=== PATIENT | female | born 1980 | race Caucasian/White ===

== ENCOUNTER 2017-08-04 12:14 | Inpatient (IN) | payer MEDICAID ==
[~2017-08-04] VITALS: Ht 157.5 cm; Wt 75.7 kg
[2017-08-04] MEDS ORDERED: ALD250 PO (13:17)
[2017-08-04 13:29] LABS: BASOPHILS # (AUTO) 0.1 K/uL (0.00-0.22); BASOPHILS % (AUTO) 1.4 % (0.0-2.0); EOSINOPHILS # (AUTO) 0.1 K/uL (0-0.4); HEMATOCRIT 35.1 % (36-48); HEMOGLOBIN 11.4 g/dL (12.0-16.0); LYMPHOCYTES # (AUTO) 2.1 K/uL (2.5-16.5); LYMPHOCYTES % (AUTO) 25.9 % (20.5-51.1); MEAN CORPUSCULAR HEMOGLOBIN 27 pg (27-31); MEAN CORPUSCULAR HGB CONC 33 g/dL (33-37); MEAN CORPUSCULAR VOLUME 82 fL (80-94); MONOCYTES # (AUTO) 0.4 K/uL (0.8-1.0); MONOCYTES % (AUTO) 5.5 % (1.7-9.3); NEUTROPHILS # (AUTO) 5.3 K/uL (1.8-7.7); NEUTROPHILS % (AUTO) 66.2 % (42.2-75.2); PLATELET COUNT (AUTO) 189 K/uL (140-450); RED CELL DISTRIBUTION WIDTH 14.1 % (11.6-13.7)
[2017-08-04 13:57] LABS: PROTHROMBIN TIME 9.1 secs (10.8-13.4)
[2017-08-04 14:14] LABS: ALBUMIN 2.4 g/dL (3.4-5.0); CARBON DIOXIDE 21.8 mmol/L (21-32); CREATININE 0.6 mg/dL (0.6-1.3); MAGNESIUM 1.8 mg/dL (1.8-2.4); POTASSIUM 3.8 mmol/L (3.5-5.1); TOTAL BILIRUBIN 0.8 mg/dL (0.0-1.0)
[2017-08-04] MEDS ORDERED: METHYLDOPA 250 MG TAB PO SCH (17:00)
[2017-08-04] MEDS ORDERED: METHYLDOPA 250 MG TAB ONE ×2 (17:49→22:11)
[2017-08-04] MEDS ORDERED: LABETALOL 100 MG TAB PO SCH (21:00)
[2017-08-05] MEDS ORDERED: LABETALOL 100 MG TAB ONE ×4 (01:46→13:51)
[2017-08-05] MEDS: LABETALOL 100 MG TAB PO SCH ×2 (01:58→13:44)
[2017-08-05 06:50] LABS: ALBUMIN 2.2 g/dL (3.4-5.0); BILIRUBIN,DIRECT 0.1 mg/dL (0.0-0.3); TOTAL BILIRUBIN 0.8 mg/dL (0.0-1.0)
--- NOTE | 2017-08-05 09:51 | NUR ---
PATIENT HAS BEEN SCREENED AND CATEGORIZED LOW NUTRITION RISK. PATIENT WILL BE SEEN WITHIN 7 DAYS OF ADMISSION. 08/11/[address]
[2017-08-05] MEDS ORDERED: BETAMETH ACET/BETAMETH NA PH 30 MG/5 ML VIAL IM ONE (16:35)
[2017-08-05] MEDS ORDERED: BETAMETH ACET/BETAMETH NA PH 30 MG/5 ML VIAL IM SCH (17:00)
[2017-08-05] MEDS: LACTATED RINGERS 1,000 ML IV SCH (23:28)
[2017-08-06] MEDS ORDERED: LABETALOL 200 MG TAB ONE ×3 (01:48→23:29)
[2017-08-06] MEDS: LABETALOL 200 MG TAB PO SCH ×2 (01:51→14:18)
[2017-08-06] MEDS ORDERED: glyBURIDE 2.5 MG TAB PO SCH (08:00)
[2017-08-06] MEDS: LACTATED RINGERS 1,000 ML IV SCH ×2 (08:15→18:37)
[2017-08-06] MEDS: glyBURIDE 2.5 MG TAB PO SCH (12:37)
[2017-08-06] MEDS ORDERED: BETAMETH ACET/BETAMETH NA PH 30 MG/5 ML VIAL IM ONE (17:04)
[2017-08-06] MEDS ORDERED: LABETALOL 100 MG TAB ONE (23:30)
[2017-08-07 06:56] LABS: BASOPHILS % (AUTO) 0.4 % (0.0-2.0); EOSINOPHILS % (AUTO) 0.3 % (0.0-4.0); HEMATOCRIT 33.5 % (36-48); HEMOGLOBIN 10.7 g/dL (12.0-16.0); LYMPHOCYTES # (AUTO) 1.1 K/uL (2.5-16.5); LYMPHOCYTES % (AUTO) 11.1 % (20.5-51.1); MEAN CORPUSCULAR HEMOGLOBIN 27 pg (27-31); MEAN CORPUSCULAR HGB CONC 32 g/dL (33-37); MEAN CORPUSCULAR VOLUME 83 fL (80-94); MONOCYTES # (AUTO) 0.3 K/uL (0.8-1.0); MONOCYTES % (AUTO) 2.8 % (1.7-9.3); NEUTROPHILS # (AUTO) 8.6 K/uL (1.8-7.7); NEUTROPHILS % (AUTO) 85.4 % (42.2-75.2); PLATELET COUNT (AUTO) 188 K/uL (140-450); RED BLOOD CELL COUNT(AUTO) 4.02 MIL/uL (4.20-5.40); RED CELL DISTRIBUTION WIDTH 14.3 % (11.6-13.7)
[2017-08-07 07:19] LABS: PROTHROMBIN TIME 9.1 secs (10.8-13.4)
[2017-08-07 07:21] LABS: ALBUMIN 2.5 g/dL (3.4-5.0); ANION GAP 13.8 (8-16); CARBON DIOXIDE 21.4 mmol/L (21-32); CREATININE 0.6 mg/dL (0.6-1.3); D-DIMER 1330 ng/ml (0-400); POTASSIUM 4.2 mmol/L (3.5-5.1); TOTAL BILIRUBIN 0.6 mg/dL (0.0-1.0)
[2017-08-07 07:33] LABS: FIBRINOGEN 411 mg/dL (200-400)
[2017-08-07] MEDS ORDERED: NIFEdipine 10 MG CAPLF ONE (07:45)
[2017-08-07] MEDS ORDERED: LABETALOL 200 MG TAB PO SCH (09:00)
[2017-08-07] MEDS: glyBURIDE 2.5 MG TAB PO SCH (13:00)
[2017-08-07] MEDS ORDERED: LABETALOL PO SCH ×2 (14:00)
[2017-08-07] MEDS ORDERED: LABETALOL 100 MG TAB ONE (14:05)
[2017-08-07] MEDS ORDERED: NALBUPHINE 10 MG/ML AMP IVP PRN (19:55)
[2017-08-07] MEDS ORDERED: MISOPROSTOL 25 MCG TAB VG SCH (19:55)
[2017-08-07] MEDS ORDERED: MORPHINE SULFATE 2 MG/ML SYR IVP PRN (19:55)
[2017-08-07] MEDS ORDERED: NIFEdipine 10 MG CAPLF PO PRN (20:10)
[2017-08-07] MEDS: LABETALOL 200 MG TAB PO SCH (21:41)
[2017-08-07] MEDS ORDERED: LABETALOL 200 MG TAB ONE (21:44)
[2017-08-07] MEDS ORDERED: ROPIVACAINE 0.2%/NS PREMIX 250 ML EPI ONE (22:39)
[2017-08-07] MEDS: LABETALOL 100 MG/20 ML VIAL ONE (23:13)
[2017-08-07] MEDS: OXYTOCIN 20 UNITS in LACTATED RINGERS 1,000 ML IV SCH (23:27)
[2017-08-07] MEDS: LACTATED RINGERS 1,000 ML IV SCH (23:31)
[2017-08-08] VITALS (18 sets, daily range): BP systolic 122–169; BP diastolic 65–100
[2017-08-08] MEDS ORDERED: NALBUPHINE HYDROCHLORIDE 10 MG/ML VIAL ONE (01:32)
[2017-08-08] MEDS ORDERED: NIFEdipine 10 MG CAPLF ONE ×3 (03:04→09:05)
[2017-08-08] MEDS ORDERED: OXYTOCIN 20 UNITS/LR PREMIX 1,000 ML IV ONE ×2 (06:17→13:42)
[2017-08-08] MEDS: OXYTOCIN 20 UNITS in LACTATED RINGERS 1,000 ML IV SCH ×2 (06:19→17:46)
[2017-08-08] MEDS: LACTATED RINGERS 1,000 ML IV SCH ×2 (06:23→17:38)
[2017-08-08] MEDS ORDERED: NIFEdipine 10 MG CAPLF PO PRN ×2 (08:30→08:40)
[2017-08-08] MEDS: LABETALOL 200 MG TAB PO SCH (09:00)
[2017-08-08] MEDS ORDERED: SEVOFLURANE 250 ML BTL INH ONE (11:50)
[2017-08-08] MEDS ORDERED: MORPHINE PRES FREE 10 MG/10 ML AMP IV ONE (11:51)
[2017-08-08] MEDS ORDERED: ROCURONIUM 50 MG/5 ML VIAL IV ONE (11:56)
[2017-08-08] MEDS ORDERED: PROPOFOL 200 MG/20 ML VIAL IV ONE (11:56)
[2017-08-08] MEDS ORDERED: SUCCINYLCHOLINE CHLORIDE 200 MG/10 ML VIAL IV ONE (11:56)
[2017-08-08] MEDS ORDERED: ONDANSETRON 4 MG/2 ML VIAL IVP ONE (11:58)
[2017-08-08] MEDS ORDERED: OXYTOCIN 20 UNITS in LACTATED RINGERS 1,000 ML IV SCH (12:06)
[2017-08-08] MEDS ORDERED: diphenhydrAMINE 50 MG/ML VIAL IVP PRN (12:10)
[2017-08-08] MEDS ORDERED: NALOXONE 0.4 MG/ML VIAL IVP PRN ×2 (12:10)
[2017-08-08] MEDS ORDERED: ONDANSETRON 4 MG/2 ML VIAL IVP PRN (12:10)
[2017-08-08] MEDS ORDERED: KETOROLAC 30 MG/ML VIAL IVP PRN (12:10)
[2017-08-08] MEDS ORDERED: KETAMINE 500 MG/5 ML VIAL ONE (12:44)
[2017-08-08] MEDS ORDERED: MIDAZOLAM 2 MG/2 ML VIAL ONE (12:44)
[2017-08-08] MEDS ORDERED: HYDROmorphone 1 MG/ML AMP IVP PRN (14:30)
--- NOTE | 2017-08-08 15:35 | NUR ---
ADMITTED A 36 YO FEMALE FROM OR SP THEN SMALL BOWEL RESECTION WITH ANASTOMOSIS PER OR NURSE.LEFT HAND 20 GAUGE IV WITH LR PLUS PITOCIN .WILL CHECK THE RATE DR MARES WANTED.PT CO PAIN 10/10 AT SURGICAL ABDOMINAL WOUND .DR MARES MADE AWARE AND WILL ORDER PAIN MEDS NOTIFIED PATIENT WILL GIVE PAIN MEDS SOON ORDERED.SINUS KVNG ON THE MONITOR.PT WITH MOY CAMEROONIAN 16 WITH YELLOW URINE.PT WITH 2 REG BULB DRAINING SANGUINEOUS DRAINAGE.PT WITH FACE MASK AT 6 L SATURATING 100 PERCENT.NGT TO RIGHT NARES CLAMPED.BILATERAL SCD ON.WILL MONITOR.
[2017-08-08] MEDS ORDERED: LABETALOL 100 MG/20 ML VIAL IV PRN ×4 (16:15→19:40)
[2017-08-08] MEDS ORDERED: GENTAMICIN PER PHARMACY MC PRN (16:20)
[2017-08-08] MEDS ORDERED: MAG SULF 2000 MG/WATER PREMIX 100 ML IV SCH (16:30)
[2017-08-08] MEDS: HYDROmorphone 1 MG/ML AMP IVP PRN (16:36)
[2017-08-08] MEDS ORDERED: MAG SULF 20 GM/H2O PREMIX DRIP 500 ML IV SCH (17:30)
--- NOTE | 2017-08-08 17:30 | NUR ---
RIGHT AC 20 GAUGE INSERTED .PT TOLERATED WELL.
[2017-08-08] MEDS: glyBURIDE 2.5 MG TAB PO SCH (17:37)
[2017-08-08] MEDS ORDERED: GENTAMICIN 120 MG in DEXTROSE 5% 100 ML IV SCH (18:00)
--- NOTE | 2017-08-08 19:45 | NUR ---
RECEIVED PATIENT ON BED AWAKE, ALERT AND ORIENTED. ON 6 L 02/; SO2 100%. CARDIACSCOPE SHOWS ON SINUS KVNG HR 56-58/MIN NO ARRHYTHMIAS SEEN. COMMENCING ON IVF LACTATED RINGERS WITH 20 UNITS PITOCIN AT 75 ML/HR VIA G20 IV CANNULA ON LEFT HAND AND ON MAGNESIUM 20 GMS IN 500 ML WATER AT 50 ML/HR VIA; PATENT AND INTACT. NGT TO LOW INTERMITTENT PRESSURE SUCTION. ABDOMINAL SURGICAL DRESSING CLEAN AND INTACT AND 2 REG DRAIN NOTED ON EACH SIDE OF ABDOMEN. WITH SCANTY LOCHIA RUBRA SEEN. MOY CATH IN PLACE TO GRAVITY DRAINAGE BAG, DRAINING TO CLEAR YELLOW URINE OUTPUT, PATENT AND INTACT.
--- NOTE | 2017-08-08 20:00 | NUR ---
SEEN AND EXAMINED BY DR. MARES, WITH NEW ORDERS, CARRIED OUT.
--- NOTE | 2017-08-08 20:10 | NUR ---
SEEN BY IT INTERN DR. LU; WITH NEW ORDERS, CARRIED OUT.
--- NOTE | 2017-08-08 20:12 | NUR ---
PLACED PT ON 2LNC. PT WAS AT 6LFACE MASK SATTING 100%. WILL CONTINUE TO MONITOR SATS
[2017-08-08 21:28] LABS: BASOPHILS # (AUTO) 0.1 K/uL (0.00-0.22); BASOPHILS % (AUTO) 0.6 % (0.0-2.0); EOSINOPHILS # (AUTO) 0.1 K/uL (0-0.4); EOSINOPHILS % (AUTO) 0.7 % (0.0-4.0); HEMATOCRIT 30.6 % (36-48); HEMOGLOBIN 9.9 g/dL (12.0-16.0); LYMPHOCYTES # (AUTO) 1.5 K/uL (2.5-16.5); LYMPHOCYTES % (AUTO) 11.5 % (20.5-51.1); MEAN CORPUSCULAR HEMOGLOBIN 27 pg (27-31); MEAN CORPUSCULAR HGB CONC 32 g/dL (33-37); MEAN CORPUSCULAR VOLUME 83 fL (80-94); MONOCYTES # (AUTO) 0.4 K/uL (0.8-1.0); NEUTROPHILS # (AUTO) 11.1 K/uL (1.8-7.7); NEUTROPHILS % (AUTO) 84.2 % (42.2-75.2); PLATELET COUNT (AUTO) 197 K/uL (140-450); RED BLOOD CELL COUNT(AUTO) 3.71 MIL/uL (4.20-5.40); RED CELL DISTRIBUTION WIDTH 14.1 % (11.6-13.7); WHITE BLOOD COUNT (AUTO) 13.2 K/uL (4.8-10.8)
[2017-08-08 21:40] LABS: ANION GAP 8.2 (8-16); CARBON DIOXIDE 26.7 mmol/L (21-32); CREATININE 0.6 mg/dL (0.6-1.3); POTASSIUM 3.9 mmol/L (3.5-5.1)
[2017-08-08 21:46] LABS: ALBUMIN 2.1 g/dL (3.4-5.0); BILIRUBIN,DIRECT 0.2 mg/dL (0.0-0.3)
[2017-08-09] VITALS (14 sets, daily range): BP systolic 123–171; BP diastolic 72–91
--- NOTE | 2017-08-09 00:15 | NUR ---
SEEN AND CHECKED BY L&D NURSE ALEXANDAR
[2017-08-09] MEDS ORDERED: MAG SULF 20 GM/H2O PREMIX DRIP 500 ML IV SCH (01:05)
--- NOTE | 2017-08-09 02:00 | NUR ---
PT IS ASLEEP, NO SIGNS OF DISTRESS. Addendum: 08/10/17 at 0636 by Zully Gonzales RN WRONG DATE
[2017-08-09] MEDS: GENTAMICIN 100 MG in DEXTROSE 5% 100 ML IV SCH ×3 (02:12→17:59)
--- NOTE | 2017-08-09 03:00 | NUR ---
SLEPT AT SHORT INTERVAL; V/S ESPECIALLY BP WITHIN NORMAL RANGE; OBSERVED AND MONITORED CLOSELY.
[2017-08-09 07:02] LABS: BASOPHILS % (AUTO) 0.3 % (0.0-2.0); EOSINOPHILS # (AUTO) 0.1 K/uL (0-0.4); EOSINOPHILS % (AUTO) 1.2 % (0.0-4.0); HEMOGLOBIN 9.5 g/dL (12.0-16.0); LYMPHOCYTES # (AUTO) 1.3 K/uL (2.5-16.5); LYMPHOCYTES % (AUTO) 10.5 % (20.5-51.1); MEAN CORPUSCULAR HEMOGLOBIN 27 pg (27-31); MEAN CORPUSCULAR HGB CONC 33 g/dL (33-37); MEAN CORPUSCULAR VOLUME 82 fL (80-94); MONOCYTES # (AUTO) 0.4 K/uL (0.8-1.0); MONOCYTES % (AUTO) 3.4 % (1.7-9.3); NEUTROPHILS # (AUTO) 10.4 K/uL (1.8-7.7); NEUTROPHILS % (AUTO) 84.6 % (42.2-75.2); PLATELET COUNT (AUTO) 181 K/uL (140-450); RED BLOOD CELL COUNT(AUTO) 3.52 MIL/uL (4.20-5.40); RED CELL DISTRIBUTION WIDTH 14.2 % (11.6-13.7); WHITE BLOOD COUNT (AUTO) 12.2 K/uL (4.8-10.8)
[2017-08-09] MEDS: OXYTOCIN 20 UNITS in LACTATED RINGERS 1,000 ML IV SCH (07:07)
--- NOTE | 2017-08-09 07:30 | NUR ---
AWAKE,ALERT AND ORIENTED. ABDOMINAL DRESSING DRY AND INTACT. RT AND LEFT REG DRAINS IN PLACE. SMALL AMT DARK RED DR. NGT TO LOW INTERMITTENT SUCTION WIT SMALL AMT. COFFEE GROUND DR. PITOCIN DRIP AT 75 ML/HR, MAGNESIUM DRIP AT 25 ML/HR ORDERED. FC INTACT AND PATENT DRAINING WELL YELLOWISH URINE.
[2017-08-09 07:34] LABS: ANION GAP 6.8 (8-16); CARBON DIOXIDE 29.2 mmol/L (21-32); CREATININE 0.7 mg/dL (0.6-1.3)
[2017-08-09] MEDS: HYDROmorphone 1 MG/ML AMP IVP PRN ×4 (07:38→21:40)
[2017-08-09] MEDS: LABETALOL 100 MG/20 ML VIAL ONE (08:23)
--- NOTE | 2017-08-09 08:30 | NUR ---
ENDORSED TO AM SHIFT JUAN REICH FOR CONTINUITY OF CARE.
--- NOTE | 2017-08-09 08:50 | NUR ---
Gentle fundal assessment done, Bandaged area not touched per doctor. Bleeding scant.
--- NOTE | 2017-08-09 10:00 | NUR ---
ABLE TO REPOSITION SELF IN BED WITH MINIMAL ASSIST.
--- NOTE | 2017-08-09 10:03 | NUR ---
FNS CONSULT RECEIVED ON 08/09/17. PATIENT CHART REVISED (CONSULTS, DIAGNOSIS, DIET ORDER, BMI, STEPHANIE SCORE). PT REMAINS TO BE CATEGORIZED LOW NUTRITION RISK. PATIENT WILL BE SEEN WITHIN 7 DAYS OF ADMISSION. 08/11/17 Addendum: 08/09/17 at [address] CONSULT REASON DOES NOT MEET HIGH RISK CRITERIA PER HOSPITAL POLICY. PATIENT WILL BE SEEN AND ASSESSED ACCORDING TO THE NUTRITION CARE POLICY.
--- NOTE | 2017-08-09 11:00 | NUR ---
DR. MARES HERE TO SEE AND EXAMINE PT.
--- NOTE | 2017-08-09 12:00 | NUR ---
PERINEAL CARE DONE. SARTHAK JONES DR. ABDOMINAL DRESSINGS DRY AND INTACT.
[2017-08-09] MEDS ORDERED: LABETALOL 100 MG/20 ML VIAL IV SCH (13:00)
--- NOTE | 2017-08-09 14:15 | NUR ---
Roland Reyes RN at bedside. Gentle Fundal assessment done. Bandaged area not touched per Dr. Bird. Bleeding scant.
[2017-08-09] MEDS ORDERED: MEASLES, MUMPS, AND RUBELLA 1 VIAL SQVAC PRN (15:45)
--- NOTE | 2017-08-09 16:00 | NUR ---
ASSISTED UP IN CHAIR. GAIT STEADY TOOK FEW STEPS AT BEDSIDE PRIOR TO SITTING. DENIES ANY DISCOMFORTS.
--- NOTE | 2017-08-09 16:15 | NUR ---
DR. MARES HERE TO SEE AND EXAMINE PT.
[2017-08-09] MEDS: LACT RING IV SCH (16:42)
[2017-08-09] MEDS: DEXT 5% IV SCH (16:42)
[2017-08-09] MEDS: POTASSIUM CHLORIDE IV SCH (16:42)
--- NOTE | 2017-08-09 18:30 | NUR ---
ASSISTED UP TO BEDSIDE COMMODE. VOIDED. FEW BLOOD CLOTS NOTED. PERINEAL CARE. DONE. PT MADE AWARE THAT SHE MIGHT NOT BE TRANSFERRED TO TELE. [facility] AG[facility].
--- NOTE | 2017-08-09 19:00 | NUR ---
REPORT GIVEN TO CLARIZE. IV D5LR 1 LITER WITH 20 MEQ KCL AT 100 ML/HR. ABD. DRESSINGS DRY AND INTACT RT REG DRAIN WITH 5ML SERO SANG. DRAINAGE. LT REG DRAIN WITH 10 ML SERO. SANG
--- NOTE | 2017-08-09 19:10 | NUR ---
RECEIVED REPORT FROM JUAN REICH. INITIAL ASSESSMENT COMPLETED. AAOX4. PT IS ON O2 @ 2LPM VIA NASAL CANNULA. ATTACHED TO GRAIN CLEANER AND TRANSFER OPERATOR, PULSE OXIMETER. IV ACCESS AT LEFT HAND 20G, IVF INFUSING WELL, LEFT AC 20G ON SALINE LOCK, PATENT, INTACT. ABDOMINAL DRESSING DRY AND INTACT. REG AT LEFT AND RIGHT ABDOMEN IN PLACE. MOY CATH IN PLACE. SCDS IN PLACE. BED IN LOW POSITION, SAFETY MEASURE ENSURE. WILL CONTINUE TO MONITOR. Addendum: 08/10/17 at 0637 by Zully Gonzales RN NGT ATTACHED TO LOW INTERMITTENT SUCTION.
--- NOTE | 2017-08-09 21:00 | NUR ---
MEDS GIVEN ORDERED. PT TOLERATED WELL.
[2017-08-09] MEDS: LABETALOL 100 MG TAB PO SCH (21:21)
[2017-08-10] VITALS: BP 134/76
[2017-08-10] MEDS: GENTAMICIN 100 MG in DEXTROSE 5% 100 ML IV SCH ×2 (01:13→10:30)
[2017-08-10] MEDS: KETOROLAC 30 MG/ML VIAL IVP PRN ×3 (01:14→12:24)
--- NOTE | 2017-08-10 02:00 | NUR ---
PT IS ASLEEP, NO SIGNS OF DISTRESS.
[2017-08-10 04:00] VITALS: BP 145/83
--- NOTE | 2017-08-10 05:00 | NUR ---
PT REFUSED MORNING CARE AT THIS TIME. SHE SAID SHE WANTED TO REST.
[2017-08-10] MEDS: POTASSIUM CHLORIDE IV SCH ×3 (05:13→19:13)
[2017-08-10] MEDS: LACT RING IV SCH ×3 (05:13→19:13)
[2017-08-10] MEDS: DEXT 5% IV SCH ×3 (05:13→19:13)
[2017-08-10] MEDS: HYDROmorphone 1 MG/ML AMP IVP PRN ×2 (05:15→21:46)
--- NOTE | 2017-08-10 06:38 | NUR ---
OB NURSE COSMO AT BEDSIDE.
[2017-08-10 07:01] LABS: HEMATOCRIT 26.2 % (36-48); HEMOGLOBIN 8.7 g/dL (12.0-16.0); MEAN CORPUSCULAR HEMOGLOBIN 27 pg (27-31); MEAN CORPUSCULAR HGB CONC 33 g/dL (33-37); MEAN CORPUSCULAR VOLUME 82 fL (80-94); PLATELET COUNT (AUTO) 211 K/uL (140-450); RED CELL DISTRIBUTION WIDTH 14.3 % (11.6-13.7)
[2017-08-10 07:10] LABS: ANION GAP 8.1 (8-16); CARBON DIOXIDE 29.9 mmol/L (21-32); CREATININE 0.7 mg/dL (0.6-1.3)
--- NOTE | 2017-08-10 07:20 | NUR ---
RECEIVED REPORT FROM DEVENDRA MARTINEZ. PT. IS AWAKE ALERT WELL ORIENTED.SKIN DRY AND WARM TO TOUCH ABDOMINOL BINDERBDRY AND INTACT NO BLEEDING NOTE. SHE HAS O2 2L/MIN IV FLUID ON RT ARM ON AC IS SALINE LOCK. # 20 ON RT HAND I NFUSING IV FLUID.
--- NOTE | 2017-08-10 07:30 | NUR ---
REPORT GIVEN TO JUAN BROCK FOR CONTINUITY OF CARE.
[2017-08-10 07:52] LABS: BASOPHILS % (MANUAL) 0 % (0-2); EOSINOPHILS % (MANUAL) 0 % (0-4); LYMPHOCYTES % (MANUAL) 8 % (20-46); MONOCYTES % (MANUAL) 3 % (5-12)
[2017-08-10] MEDS: LABETALOL 100 MG TAB PO SCH ×2 (08:56→21:46)
--- NOTE | 2017-08-10 09:45 | NUR ---
CALL TELE REPORT GIVE TO LILIA MARTINEZ.
--- NOTE | 2017-08-10 10:15 | NUR ---
TRANSFER TO TELE ROOM 120 IN WHEELCHAIR CONDITION STABLE DURING TRANSFER.
[2017-08-10 11:00] VITALS: BP 156/92
--- NOTE | 2017-08-10 11:10 | NUR ---
BP 156/92, PAGED DR. MARES. PT IS ASYMPTOMATIC, NO S/S OF DISTRESS NOTED.
--- NOTE | 2017-08-10 11:10 | NUR ---
PT RECEIVED FROM ICU. REPORT RECEIVED AT BEDSIDE. PT IS AOX4. NO S/S OF DISTRESS NOTED. PT ON RM AIR. ABD WOUND DRESSING NOTED, DRESSING CLEAN, DRY, AND INTACT. REG DRAINS NOTED ON THE LEFT AND RIGHT ABD. 2ML LIGHT RED OUTPUT IN EACH REG. IV NOTED ON THE LEFT HAND AND AC. NG TUBE IN PLACE. PT ON LOW INTERMITTENT SUCTION. MINIMAL YELLOW DRAINAGE NOTED. PT PLACED ON TELE MONITORING. SCDS CONNECTED. BED IN LOW POSITION, CALL LIGHT WITHIN REACH.
--- NOTE | 2017-08-10 12:30 | NUR ---
PER PT REQUEST, PAGED DR. MARES REGARDING NG TUBE REMOVAL. WAITING FOR CALL BACK.
[2017-08-10] MEDS ORDERED: GENTAMICIN 100 MG in DEXTROSE 5% 100 ML IV SCH ×4 (13:00)
--- NOTE | 2017-08-10 13:45 | NUR ---
PATIENT SEEN BY DR MARES AND DR REINA. PER DR REINA, NGT CAN NOW BE DISCONTINUED. DR MARES STATES THAT THE BOWELS ARE STILL NOT FULLY FUNCTIONAL AND THERE IS STILL DRAINAGE FROM THE SUCTION. 20ML OF YELLOW DRAINAGE NOTED. PATIENT AGREES TO KEEP THE NGT IN PLACE AND HAVE IT ON INTERMITTENT SUCTION. DR MARES TO CHECK ON THE PATIENT AGAIN LATER AT 1800
--- NOTE | 2017-08-10 14:10 | NUR ---
TOOK PT BY WHEELCHAIR TO NURSERY TO SEE HER BABY. PT SHOWED NO ACUTE DISTRESS.
--- NOTE | 2017-08-10 14:30 | NUR ---
BROUGHT PT BACK TO HER ROOM. RECONNECTED THE IV, INFUSING WELL. PT SAT ON THE CHAIR AND CHATTING WITH HER MOTHER AND FAMILIES.
--- NOTE | 2017-08-10 15:12 | NUR ---
PT HAS BEEN SEEN BY DR LU. DR LU ORDERED INFECTION DISEASE CONSULT. DR LU RECOMMENDS LOVENOX FOR VTE PROPHYLAXIS. PAGED DR MARES. WAITING FOR CALL BACK.
--- NOTE | 2017-08-10 15:29 | NUR ---
PT AMBULATING IN THE UNIT. NO S/S DISTRESS NOTED.
[2017-08-10 16:00] VITALS: BP 168/76
--- NOTE | 2017-08-10 16:00 | NUR ---
BP 168/76, NO S/S OF DISTRESS. PT DENIED DISCOMFORT, PAGED DR. MARES, WILL REASSESS.
--- NOTE | 2017-08-10 17:30 | NUR ---
REG DRAINS OPENED AND DRAINED, 5 ML OF LIGHT RED OUTPUT MEASURED IN EACH REG DRAIN. PRESSURE REAPPLIED. PT TOLERATED WELL.
[2017-08-10 18:00] VITALS: BP 162/92
--- NOTE | 2017-08-10 18:40 | NUR ---
SPOKE WITH DR MARES AND INFORMED HIM ABOUT THE 240ML OUTPUT FROM THE NGT INTERMITTENT SUCTION. ORDERS TO KEEP THE NGT IN AND CONTINUE WITH THE INTERMITTENT LOW SUCTION Q4H FOR 10 MIN.
[2017-08-10] MEDS: PIPER/TAZO 3.375GM/D5W PREMIX 50 ML IV SCH (19:04)
[2017-08-10] MEDS ORDERED: PIPERACILLIN/TAZOBACTAM 3.375 GM VIAL IV ONE (19:06)
--- NOTE | 2017-08-10 19:37 | NUR ---
ENDORSE PT TO COLD ROLLING MACHINE SETTER. REPORT GIVEN AT PT BEDSIDE. PT IS IN STABLE CONDITION, NO S/S OF ACUTE DISTRESS NOTED.
--- NOTE | 2017-08-10 19:42 | NUR ---
PATIENT SEEN BY DR MARES. DR INFORMED ABOUT DR LU'S RECOMMENDATION OF LOVENOX FOR VTE PROPHYLAXIS. DR MARES ALSO INFORMED OF PATIENT ELEVATED SYSTOLIC BP. NO NEW ORDERS. ORDERS TO HOLD SUCTION AFTER MIDNIGHT. NIGHT NURSE INFORMED
--- NOTE | 2017-08-10 19:43 | NUR ---
RECEIVED PT FROM DAY SHIFT NURSE. PT LYING COMFORTABLY IN BED. AA0X4. IV TO LEFT HAND #22G. NG TUBE IN PLACE. ABDOMINAL WOUND DRESSING DRY AND INTACT. REG DRAIN ON THE LEFT AND RIGHT ABDOMEN. DISCUSSED PLAN OF CARE. PT VERBALIZED UNDERSTANDING. CALL LIGHT WITHIN REACH. WILL CONTINUE TO MONITOR.
[2017-08-10 20:00] VITALS: BP 151/87
--- NOTE | 2017-08-10 21:30 | NUR ---
SUCTION PT IN LOW INTERMITTENT FOR 10 MINS. NO C/O PAIN.
--- NOTE | 2017-08-10 23:45 | NUR ---
PT LYING COMFORTABLY IN BED. CALL LIGHT WITHIN REACH.
[2017-08-11] VITALS: BP 162/90
[2017-08-11] MEDS ORDERED: PIPERACILLIN/TAZOBACTAM 3.375 GM VIAL IV ONE (01:21)
--- NOTE | 2017-08-11 02:00 | NUR ---
PT SLEEPING. NO SIGNS OF DISTRESS. CALL LIGHT WITHIN REACH.
[2017-08-11 04:00] VITALS: BP 152/84
--- NOTE | 2017-08-11 04:45 | NUR ---
PT SLEEPING. NO SIGNS OF DISCOMFORT NOTED. CALL LIGHT WITHIN REACH.
[2017-08-11] MEDS: PIPER/TAZO 3.375GM/D5W PREMIX 50 ML IV SCH ×5 (06:04→23:24)
[2017-08-11 07:02] LABS: BASOPHILS % (AUTO) 0.3 % (0.0-2.0); EOSINOPHILS # (AUTO) 0.3 K/uL (0-0.4); EOSINOPHILS % (AUTO) 2.4 % (0.0-4.0); HEMATOCRIT 26.1 % (36-48); HEMOGLOBIN 8.4 g/dL (12.0-16.0); LYMPHOCYTES # (AUTO) 1.7 K/uL (2.5-16.5); LYMPHOCYTES % (AUTO) 14.1 % (20.5-51.1); MEAN CORPUSCULAR HEMOGLOBIN 27 pg (27-31); MEAN CORPUSCULAR HGB CONC 32 g/dL (33-37); MEAN CORPUSCULAR VOLUME 83 fL (80-94); MONOCYTES # (AUTO) 0.5 K/uL (0.8-1.0); NEUTROPHILS # (AUTO) 9.5 K/uL (1.8-7.7); NEUTROPHILS % (AUTO) 79.2 % (42.2-75.2); PLATELET COUNT (AUTO) 244 K/uL (140-450); RED BLOOD CELL COUNT(AUTO) 3.16 MIL/uL (4.20-5.40); RED CELL DISTRIBUTION WIDTH 14.8 % (11.6-13.7)
--- NOTE | 2017-08-11 07:25 | NUR ---
ENDORSED PT TO DAY SHIFT NURSE. PT IN STABLE CONDITION.
--- NOTE | 2017-08-11 07:30 | NUR ---
RECEIVED PT REPORT FROM NIGHT NURSE AT BEDSIDE. PT IS AAOX4 AND SHOWS NO S/S OF ACUTE DISTRESS ON ROOM AIR. NGT IN PLACE AND NO SUCTION. DENIES PAIN. NOTED ABD DRX CLEAN DRY AND INTACT WITH TWO REG DRAINS ONE ON THE R SIDE OF THE LOWER ABD AND ANOTHER ON THE LEFT SIDE OF THE LOWER ABD, BOTH WITH NO DRAINAGE. IV NOTED ON THE L AC WITH IVF'S INFUSING WELL. PT ON TELE MONITOR. THE BED IS LOWERED WITH CALL LIGHT WITHIN REACH. WILL CONTINUE TO MONITOR.
[2017-08-11 07:37] LABS: ANION GAP 12.1 (8-16); CREATININE 0.7 mg/dL (0.6-1.3); POTASSIUM 4.1 mmol/L (3.5-5.1)
[2017-08-11 08:00] VITALS: BP 145/95
[2017-08-11] MEDS: LABETALOL 100 MG TAB PO SCH ×2 (10:49→20:46)
--- NOTE | 2017-08-11 10:50 | NUR ---
ADMINISTERED SCHEDULE MEDICATIONS LATE, PT C/O LOWER ABD PAIN 02/19 ADMINISTERED TORADOL 30 MG IVP. BED IN LOW POSITION WITH CALL LIGHT WITHIN REACH.
[2017-08-11] MEDS: DEXT 5% IV SCH (10:59)
[2017-08-11] MEDS: LACT RING IV SCH (10:59)
[2017-08-11] MEDS: POTASSIUM CHLORIDE IV SCH (10:59)
--- NOTE | 2017-08-11 11:00 | NUR ---
DR ZUÑIGA CALLED BACK AND WAS NOTIFIED OF PT HAVE TWO LARGE FORMED BM'S AND NO DRAINAGE FROM SUCTIONING THIS AM FOR [address] STATED TO DISCONTINUE NGT AND PROVIDE PT WITH 50 CC CLEAR LIQUIDS Q3H. WILL CONTINUE TO MONITOR.
--- NOTE | 2017-08-11 11:05 | NUR ---
PT NGT WAS DISCONTINUED. PT TOLERATED WELL. PT THEN AMB TO THE SINK AND WASHED HER FACE AND ORAL HYGIENE WAS PERFORMED. PT WAS ASKED HOW DOES SHE FEEL AND PT STATED, " I FEEL FINE, COULD I SEE BY SON." PT IS AWARE BABY BOY IS IN ROOM [address]UÑIGA WILL BE NOTIFIED IF SHE CAN GO TO SEE SON ONCE HE IS OUT FROM PERFORMING SURGERY BC SHE IS ON A TELE MONITOR.
--- NOTE | 2017-08-11 11:20 | NUR ---
PT PAIN WAS REASSESSED. PT PAIN IS 3/10 AND STATES IT IS TOLERABLE.
[2017-08-11 12:00] VITALS: BP 147/85
--- NOTE | 2017-08-11 12:00 | NUR ---
PT BEING SEEN BY DR LU. DR SCHNEIDER TO SCD'S AND LET DR OROZCO NOT OF ANTICOAGULANT PROPHYLAXIS ON HIS REPORT. DR OROZCO STATED EARLIER HE WILL BE COMING IN TO SEE PT.
--- NOTE | 2017-08-11 13:30 | NUR ---
ADMINISTERED SCHEDULED MEDICATION LATE. IV ABX IS INFUSING WELL. PT STATES 3/10 TOLERABLE ABD PAIN. ALL NEEDS MET AT THIS TIME. BED IN LOW POSITION WILL CALL LIGHT WITHIN REACH.
--- NOTE | 2017-08-11 14:00 | NUR ---
DR MARES SAW PT AND OKAY TO BE TRANSFERRED TO RM 217. DR ORDERED TO DC IV PRN PAIN MEDICATIONS, CONTINUE ABX, CONTINUE IVF'S, ADVANCE DIET AT TOLERATED. DR TO PLACE ORDERS.
[2017-08-11] MEDS ORDERED: SIMETHICONE 80 MG TAB.CHEW PO PRN (14:15)
[2017-08-11] MEDS ORDERED: ACETAMINOPHEN 325 MG TAB PO PRN (14:15)
[2017-08-11] MEDS ORDERED: MEASLES, MUMPS, AND RUBELLA 1 VIAL SQVAC PRN (14:15)
--- NOTE | 2017-08-11 14:30 | NUR ---
PT WAS TRANSFERRED TO ROOM 217. PT REPORT WAS GIVEN TO MARIELA MARTINEZ AND IS AWARE PT MAGNESIUM IS 1.[address] LU FOR LOVENOX FOR PROPHYLAXIS IS STILL NEEDED TO CONTINUE PT'S POC. MARIELA MARTINEZ VERBALIZED UNDERSTANDING. IV ABX'S, MMR VACCINE, AND TDAP VACCINE WERE GIVEN TO RN. PT WAS ENDORSED IN STABLE CONDITION.
[2017-08-11] MEDS: METOCLOPRAMIDE 10 MG TAB PO SCH (16:38)
[2017-08-12] MEDS: IBUPROFEN 600 MG TAB PO PRN ×3 (00:40→21:32)
[2017-08-12] MEDS: POTASSIUM CHLORIDE IV SCH (01:51)
[2017-08-12] MEDS: LACT RING IV SCH (01:51)
[2017-08-12] MEDS: DEXT 5% IV SCH (01:51)
[2017-08-12] MEDS: PIPER/TAZO 3.375GM/D5W PREMIX 50 ML IV SCH ×2 (05:54→12:43)
[2017-08-12] MEDS: METOCLOPRAMIDE 10 MG TAB PO SCH ×3 (06:51→17:52)
[2017-08-12] MEDS: DOCUSATE SODIUM 100 MG GELCAP PO SCH (09:52)
[2017-08-12] MEDS: LABETALOL 100 MG TAB PO SCH ×2 (09:52→21:31)
--- NOTE | 2017-08-12 11:08 | NUR ---
08/12/17 RD INITIAL ASSESSMENT COMPLETED PLEASE REFER TO NUTRITION ASSESSMENT UNDER CARE ACTIVITY FOR ESTIMATED NUTRITIONAL NEEDS. 1. CONTINUE FULL LIQUID DIET, ADVANCE TOLERATED TO REGULAR DIET 2. RD TO FOLLOW-UP 3-5 DAYS, MODERATE RISK MEAGAN FIGUEROA RD
--- NOTE | 2017-08-12 12:02 | NUR ---
PER OB RN'S INSTRUCTION WAS TOLD NOT TO OPEN THE DRESSING. DR. MARES WAS PAGED BY WOUND CARE NURSE FOR FURTHER INSTRUCTION.
[2017-08-13] MEDS: METOCLOPRAMIDE 10 MG TAB PO SCH ×2 (06:58→11:52)
[2017-08-13] MEDS: LABETALOL 100 MG TAB PO SCH (09:01)
[2017-08-13] MEDS: IBUPROFEN 600 MG TAB PO PRN (09:01)
[2017-08-13] MEDS: DOCUSATE SODIUM 100 MG GELCAP PO SCH (09:03)
[2017-08-13] MEDS ORDERED: FERR-193 PO (14:40)
[2017-08-13] MEDS ORDERED: IBUP-1842 PO (14:41)
[2017-08-13] MEDS ORDERED: TRA200 PO (14:41)
[2017-08-13] MEDS ORDERED: DOCU-299 PO (14:41)
== END 2017-08-13 15:15 | disposition home or self-care (01) | DRG 540 ==
LOC: MFCC 12:14 → OBSVTOIN 08-06 07:00 → MLD 08-08 06:34 → MIC 08-08 15:46 → MTU 08-10 10:30 → MFCC 08-11 14:35
PROVIDERS: ADMIT Obstetrics & Gynecology; ATTEND Obstetrics & Gynecology
PROC: 10D00Z1 Extraction of Products of Conception, Low, Open Approach (ICD-10-PCS; 2017-08-08)
PROC: 3E1M38Z Irrigation of Peritoneal Cavity using Irrigating Substance, Percutaneous Approach (ICD-10-PCS; 2017-08-08)
PROC: 0DB80ZZ Excision of Small Intestine, Open Approach (ICD-10-PCS; principal; 2017-08-08 11:30)
PROC: 0DQ80ZZ Repair Small Intestine, Open Approach (ICD-10-PCS; 2017-08-08 11:30)
PROC: 3E0234Z Introduction of Serum, Toxoid and Vaccine into Muscle, Percutaneous Approach (ICD-10-PCS; 2017-08-12)
DX: O14.94 Unspecified pre-eclampsia, complicating childbirth (principal); J96.01 Acute respiratory failure with hypoxia; O85 Puerperal sepsis; O24.429 Gestational diabetes mellitus in childbirth, unspecified control; Z3A.37 37 weeks gestation of pregnancy; O99.214 Obesity complicating childbirth; E66.9 Obesity, unspecified; Z68.30 Body mass index [BMI] 30.0-30.9, adult; K91.72 Accidental puncture and laceration of a digestive system organ or structure during other procedure; Y83.8 Other surgical procedures as the cause of abnormal reaction of the patient, or of later complication, without mention of misadventure at the time of the procedure; O69.81X0 Labor and delivery complicated by cord around neck, without compression, not applicable or unspecified; Z37.0 Single live birth; O99.53 Diseases of the respiratory system complicating the puerperium; Z23 Encounter for immunization
CPT/HCPCS: G0378 ×43; 36415; 71010; 76805; 80048; 80053; 80076; 80170; 82947; 82948; 83605; 83735; 85025; 85379; 85384; 85610; 85730; 86886; 86900; 86901; 87081; 90707; 90715; 93005; J0330; J0690; J0702; J1170; J1580; J1885; J2250; J2270; J2300; J2405; J2543; J2590; J2704; J2795; J3475; J3480; J3490; J7030; J7060; J7120; J8597; Q0092; Q0163